=== PATIENT | female | born 1925 | race Caucasian/White ===

== ENCOUNTER 2017-01-02 08:37 | Emergency (ER) | payer OTHER ==
[~2017-01-02] VITALS: Ht 157.5 cm; Wt 56.0 kg
[~2017-01-02 08:37] MED LIST: ACTO35TA PO
[2017-01-02 08:39] VITALS: BP 179/74; PULSE 86; RESP 16; TEMP 97.8; O2SAT 98
[2017-01-02 08:59] VITALS: BP 190/75; PULSE 81; RESP 16; O2SAT 99
--- NOTE | 2017-01-02 10:09 | RADRPT ---
EXAM DATE/TIME: 01/02/2017 09:30 [facility] COMPARISON: No previous studies available for comparison. INDICATIONS : Fell today, pain right hip and upper femur MEDICAL HISTORY : None. SURGICAL HISTORY : None. ENCOUNTER: Initial ACUITY: 1 day PAIN SCORE: 10/10 LOCATION: Right femur FINDINGS: 4 views the right femur demonstrate no fracture or dislocation. The bones are undermineralized. There is mild right hip joint osteoarthritis with joint space narrowing and acetabular and femoral head os teophytes. No joint effusion is identified at the knee joint. No soft tissue abnormality or radiopaqu e foreign body is identified. CONCLUSION: 1. No acute abnormality is identified. 2. Undermineralized bones with right hip joint osteoarthritis. Sharath Walter MD on January 02, 2017 at 10:06 Board Certified Radiologist. This report was verified electronically.
--- NOTE | 2017-01-02 10:10 | RADRPT ---
EXAM DATE/TIME: 01/02/2017 09:30 [facility] COMPARISON: No previous studies available for comparison. INDICATIONS : Fell today, pain in right hip MEDICAL HISTORY : None. SURGICAL HISTORY : None. ENCOUNTER: Initial ACUITY: 1 day PAIN SCORE: 10/10 LOCATION: Right hip FINDINGS: AP view of the pelvis with 2 views of the right hip demonstrates no fracture or dislocation. The bone s are undermineralized. There is mild right and moderate severe left hip joint osteoarthritis. Sacroi liac joints demonstrate no acute finding. There is degenerative disc disease in the visualized inferi or lumbar spine. No soft tissue abnormality or radiopaque foreign body is identified. CONCLUSION: 1. No fracture or acute abnormality is identified. 2. Moderate to severe left and mild right hip joint osteoarthritis. Sharath Walter MD on January 02, 2017 at 10:07 Board Certified Radiologist. This report was verified electronically.
--- NOTE | 2017-01-02 10:16 | PD ---
HPI Chief Complaint: Hip Injury Time Seen by Provider: 10:15 Travel History International Travel<30 days: No Contact w/Intl Traveler<30days: No Traveled to known affect area: No History of Present Illness HPI 89 year old female presents to the ED with 3 day history of right hip pain after a fall. Patient says she was standing on her terrazzo floor when she suddenly fell to her right side. She denies dizziness or palpitations prior to fall. No loss of consciousness. No head trauma or injuries. Right hip pain occurs with movement, sharp, 8/10, and non-radiation. Patient is able to ambulate with "a lot of pain." She has been using a cane due to falls. Similar episode 1 month ago while at [employer]. No LOC at that time but did hit her head. Patient denies paraesthesias, muscle weakness, back pain, headache , dizziness, fevers changes in vision, chest pain, or palpitations. No PMH. No medications. Modifying Factors: Worse with movement and weightbearing Associated Signs & Symptoms: Fall, right hip injury 3 days ago Risk Factors: None PFSH Past Medical History Medical History: Denies Significant Hx Cardiovascular Problems: No Influenza Vaccination: Yes ?: Not Menopausal: Yes Past Surgical History Appendectomy: Yes Tonsillectomy: Yes Social History Alcohol Use: No Tobacco Use: No Substance Use: No Allergies-Medications (Allergen,Severity, Reaction): Coded Allergies: aspirin (Unverified Allergy, Mild, 01/02/17) penicillin G (Unverified Allergy, Mild, 01/02/17) codeine (Verified Allergy, Unknown, 01/02/17) Reported Meds & Prescriptions Reported Meds & Active Scripts Active Tylenol (Acetaminophen) 325 Mg Tab 325 Mg PO Q4H PRN Review of Systems Except as stated in HPI: all other systems reviewed are Neg Physical Exam Narrative GENERAL: Well-developed. Well-nourished. Lying comfortably in bed. Answers questions and follows commands appropriately. Awake and oriented 3. SKIN: Warm and dry. HEAD: Atraumatic. Normocephalic. EYES: Pupils equal and round. No scleral icterus. No injection or drainage. Extraocular movements in tact. ENT: No nasal bleeding or discharge. Mucous membranes pink and moist. NECK: Trachea midline. No JVD. CARDIOVASCULAR: Regular rate and rhythm. Radial and pedal pulses 2+ bilaterally. RESPIRATORY: No accessory muscle use. Clear to auscultation. Breath sounds equal bilaterally. GASTROINTESTINAL: Abdomen soft, non-tender, nondistended. Hepatic and splenic margins not palpable. MUSCULOSKELETAL: Extremities without clubbing, cyanosis, or edema. No obvious deformities. Right hip and buttocks tender to palpation. No edema, erythema or contusions. Full ROM. Pelvis is stable, nontender to palpation. NEUROLOGICAL: Awake and alert. No obvious cranial nerve deficits. Motor grossly within normal limits. Five out of 5 muscle strength in the arms and legs. Normal speech. PSYCHIATRIC: Appropriate mood and affect; insight and judgment normal. Data Data Last Documented VS Vital Signs Date Time Temp Pulse Resp B/P (MAP) Pulse Ox O2 Delivery O2 Flow Rate FiO2 01/02/17 10:25 88 16 142/64 (90) 98 Room Air 01/02/17 08:39 97.8 Orders Orders Femur (Ap & Lat/2vws) (01/02/17 09:06) Hip, Uni(Ap&Lat) W Ap Pelvis (01/02/17 09:06) Ct Hip W/O Contrast (01/02/17 ) Ed Discharge Order (01/02/17 12:09) MDM Medical Decision Making Medical Screen Exam Complete: Yes Emergency Medical Condition: Yes Medical Record Reviewed: Yes Interpretation(s) Last 24 hours Impressions Hip and Pelvis X-Ray 01/02/17905 Signed Impressions: Service Date/Time: Monday, January 02, 2017 09:30 - CONCLUSION: 1. No fracture or acute abnormality is identified. 2. Moderate to severe left and mild right hip joint osteoarthritis. Sharath Walter MD Femur X-Ray 01/02/17905 Signed Impressions: Service Date/Time: Monday, January 02, 2017 09:30 - CONCLUSION: 1. No acute abnormality is identified. 2. Undermineralized bones with right hip joint osteoarthritis. Sharath Walter MD Lower Extremity CT 01/02/17 0000 Signed Impressions: Service Date/Time: Monday, January 02, 2017 11:01 - CONCLUSION: 1. No fracture or dislocation. 2. Moderate bilateral osteoarthritis of the hips. Matias Solis Jr., MD Differential Diagnosis Hip contusion versus fractures versus dislocation Narrative Course Initial x-rays did not show any signs of acute fractures. However, patient is quite tender over that area and is having difficulty walking and CAT scan was done especially considering her underlying osteoporosis. CAT scan did not show any signs of occult fractures and at this point, my plan would be to release her with symptomatic relief with Tylenol for pain and follow-up with primary care doctor. She should decrease weightbearing on that leg. She has a cane at home. She also has help and lives with her son. She may need help with transferring for the next week. Return for any worsening in pain or new symptoms as needed. The plan was discussed with her and she states understanding. Diagnosis Primary Impression: Contusion of hip, right Med/Other Pt SpecificInfo: Prescription(s) given Scripts Acetaminophen (Tylenol) 325 Mg Tab 325 MG PO Q4H Y for PAIN SCALE 1 TO 10, #15 TAB 0 Refills Prov: Rolando Lord MD 01/02/17 Disposition: 01 DISCHARGE HOME Condition: Stable Rolando Lord MD Jan 02, 2017 10:15
[2017-01-02 10:25] VITALS: BP 142/64; PULSE 88; RESP 16; O2SAT 98
--- NOTE | 2017-01-02 11:26 | RADRPT ---
EXAM DATE/TIME: 01/02/2017 11:01 [facility] COMPARISON: HIP RIGHT (AP&LAT 2/3VWS) W AP PELVIS, January 02, 2017, 9:30. INDICATIONS : Trauma. Fell on Sunday. Right hip pain. RADIATION DOSE: 11.01 CTDIvol (mGy) MEDICAL HISTORY : None SURGICAL HISTORY : Appendectomy. ENCOUNTER: Initial ACUITY: 2 days PAIN SCALE: 8/10 LOCATION: Right hip TECHNIQUE: Volumetric scanning of the hip was performed. Using automated exposure control and adjustment of the mA and/or kV according to patient size, radiation dose was kept as low as reasonably achievable to o btain optimal diagnostic quality images. DICOM format image data is available electronically for rev iew and comparison. FINDINGS: BONES: No evidence of fracture. No sacral insufficiency fracture. No hip fracture. Alignment is within norm al limits. JOINTS: There is joint space narrowing with osteophyte production involving the right hip joint and left hip joint. No subchondral geode formation. No flattening of the femoral heads. SOFT TISSUES: Muscles, tendons and neurovascular structures are grossly unremarkable. No evidence of mass, organize d fluid collection, or foreign body. CONCLUSION: 1. No fracture or dislocation. 2. Moderate bilateral osteoarthritis of the hips. Matias Solis Jr., MD on January 02, 2017 at 11:21 Board Certified Radiologist. This report was verified electronically.
[2017-01-02] MEDS ORDERED: TYLE325T PO (12:10)
== END 2017-01-02 12:21 | disposition home or self-care (01) ==
LOC: NEPE 08:37
DX: S70.01XA Contusion of right hip, initial encounter (principal); M16.0 Bilateral primary osteoarthritis of hip; W18.30XA Fall on same level, unspecified, initial encounter; Z88.6 Allergy status to analgesic agent; Z88.0 Allergy status to penicillin; Z88.5 Allergy status to narcotic agent
CPT/HCPCS: 73502; 73552; 73700; 99285